=== PATIENT | female | born 2000 | race Caucasian/White ===

== ENCOUNTER 2023-03-14 22:08 | Inpatient (IN) | payer SELFPAY, OTHER ==
[2023-03-14 22:27] VITALS: BMI 25.0
[2023-03-14 22:37] VITALS: BP 127/83; PULSE 87; TEMP 36.9; O2SAT 98
[2023-03-14 22:51] LABS: Absolute Lymphocyte Count 2.43 X10^3/uL (0.83-4.51); Absolute Neutrophil Count 8.1 X10^3/uL (2.0-7.7); Basophil# 0.05 X10^3/uL; Basophil% 0.4 % (0-1); Eosinophil# 0.06 X10^3/uL; Eosinophils% 0.5 % (0-5); Hematocrit 34.8 % (37-47); Hemoglobin 11.6 g/dL (12.0-15.0); Lymphocyte # 2.43 X10^3/ul (0.83-4.51); Lymphocyte % 20.6 % (19-41); Mean Corp Hgb Conc 33.3 g/dL (32-36); Mean Corpuscular Hgb 29.8 pg (27.0-32.0); Mean Corpuscular Volume 89.5 fL (81-99); Mean Platelet Vol. 9.9 fl (6.2-12.0); Monocyte# 1.02 X10^3/uL; Monocyte% 8.7 % (0-10); NRBC Flagged by Analyzer 0 % (0-5); Neutrophil # 8.13 X10^3/uL (2.7-7.7); Neutrophil % 69.1 % (47-70); Platelet Count 229 K/mm3 (150-450); RBC Distribution Width CV 13.4 % (11.6-14.6); RBC Distribution Width SD 43.5 fl (35.1-43.9); Red Blood Count 3.89 M/mm3 (4.2-5.4); White Blood Count 11.8 K/mm3 (4.4-11.0)
--- NOTE | 2023-03-14 23:03 | HP.PCM.OB_ITS ---
HPI - General General Date of Admission: 03/14/23 Date of Service: 03/14/23 HPI Narrative JOYCE KHAN, is a 22 F who presents IAL at 36.3 weeks. She was a transfer of care from [facility]. Maternal Data Information Final STEFANIE: 04/09/23 Final STEFANIE Source: LMP Gestational age: 36 weeks 3 days PFSH PFSH Medical History no medical history Allergy/AdvReac Type Severity Reaction Status Date / Time No Known Allergies Allergy Verified 03/14/23 23:31 Family History no significant family his no significant family history Surgical History no surgical history no surgical history Social History Smoking Status: Never smoker History 2 Elective abortions Hx Para 1 Spontaneous abortions Hx # Term Pregnancies Ectopic pregnancies Hx # Pregnancies 1 Multiple births # of living children 1 NST FHR Rate Baby A Baseline: 130 Variability:: Moderate Accelerations:: 15 x 15 Decelerations:: None NST Reactive:: Yes FHR Category:: Category I Uterine Activity:: 4-7 minutes ROS Constitutional Constitutional: Denies change in weight, fatigue, fever(s), headache(s), poor appetite or weakness Eyes Eyes: Denies blurry vision, change in vision, floaters, seeing flashes or spots in vision ENT HEENT: Denies dizziness, headache(s), loss taste/smell or sore throat Cardiovascular Cardiovascular: Denies chest pain, dizziness, dyspnea, irregular heart rhythm, lightheadedness, palpitations or rapid heart rate Respiratory/Chest Respiratory/Chest: Denies change in mental status, chest tightness, cough, dyspnea or breast pain Gastrointestinal Gastrointestinal: Denies anorexia, chewing difficulty, constipation, diarrhea or weight changes Genitourinary Genitourinary: Denies difficulty urinating, dysuria, flank pain, genital pain, urinary frequency or urinary urgency Musculoskeletal Musculoskeletal: Denies back pain, difficulty walking, extremity pain, joint pain, muscle cramps or muscle weakness Integumentary Integumentary: Denies lesions or unusual bruising Neurologic Neurologic: Denies abnormal movements, abnormal speech, dizziness, numbness, seizure-like activity, syncope or weakness Psychiatric Psychiatric: Denies behavioral changes, change in appetite, confusion, depression, homicidal ideation, suicidal ideation or suicidal thoughts Endocrine Endocrinology: Denies excessive sweating, polydipsia or polyuria Hematologic/Lymphatic Hematologic/Lymphatic: Denies anemia Allergic/Immunologic Allergic/Immunologic: Denies itchy eyes, lip swelling, throat swelling, tongue swelling or wheezing Vital Signs Vital Signs Vital Signs: 03/14/23 22:37 03/14/23 22:37 03/14/23 22:37 Temperature Temperature Source Temporal Pulse Rate 87 Blood Pressure 127/83 H BP Systolic 127 BP Diastolic 83 Pulse Ox 03/14/23 22:37 03/14/23 22:37 Temperature 98.5 F Temperature Source Pulse Rate Blood Pressure BP Systolic BP Diastolic Pulse Ox 98 Weight Weight: 150 lb 3.2 oz Body Mass Index (BMI) 25.0 Physical Exam Const alert, oriented x3 and no apparent distress General Appearance: cooperative Orientation / Consciousness: awake HEENT normocephalic Neck full ROM Resp normal respiratory effort and normal air movement Effort and Inspection: able to speak in complete sentences and symmetric chest movement GI soft to palpation and non-tender Inspection: gravid Palpation: soft; Negative for tender external exam normal Manual OB Exam: estimated gestational size appropriate, presentation cephalic, dilated 7, effaced 90 and station 0 Back/Spine normal to inspection Extremity normal to inspection and full ROM Skin no rashes or lesions noted Psych mental status grossly normal Appearance: grossly normal Speech: normal speech Labs Labs Labs: Blood Type Pending Antibody Screen Pending Hct 34.8 % (37-47) L Hgb 11.6 g/dL (12.0-15.0) L Syphilis Total Ab Pending HIV 1&2 Antibody Pending Assessment & Plan (1) Active labor: COMMENT: transfer from [facility]. Charges/Coding Multi Select Codes Urinary/Genital Urinary/Genital CPT Codes: No Charge
[2023-03-14 23:37] VITALS: BP 132/76; PULSE 103; PULSE 77; TEMP 37.4; O2SAT 98
[2023-03-14 23:52] LABS: HIV - WCH Non-Reactive (Nonreactive); Hepatitis C Antibody Non-Reactive (Nonreactive); Syphilis Antibodies Non-reactive
[2023-03-15] VITALS (19 sets, daily range): BP systolic 98–134; BP diastolic 58–88; PULSE 67–112; RESP 14–16; TEMP 36.4–37.3; O2SAT 96–99
[2023-03-15 00:10] LABS: Group B Strep DNA By PCR Negative (Negative); Internal Control PASS; Probe Check PASS; Specimen Processing Control PASS
[2023-03-15] MEDS: Oxytocin 15 Units/NS 250ml 15 UNITS/250 ML IV.SOLN 334 UNITS IV (01:14)
[2023-03-15] MEDS: fentaNYL 100 MCG/2 ML Ampul IV (01:35)
--- NOTE | 2023-03-15 01:51 | EX.PCM.OBRPT ---
Assessment & Plan (1) Active labor: COMMENT: KW 36.3 IAL-transfer from [facility]. Maternal Data Information Final STEFANIE: 04/09/23 Final STEFANIE Source: LMP Gestational age: 36.3 Vaginal Delivery Maternal Presentation Maternal Presentation: Active Labor Maternal Presentation: Patient began pushing and delivered the head in the NIDA presentation. The head was delivered atraumatically and a tight nuchal cord ?1 was identified and was somersaulted through. The anterior and posterior shoulders delivered without complication followed by the rest of the and the was placed on the maternal abdomen. Delayed cord clamping was employed for approximately 60 seconds. Cord was clamped and cut and gentle traction was applied to the cord and the placenta delivered spontaneously immediately following it was noted to be intact with three-vessel cord. The perineum and vagina were inspected and noted to have a second degree lacerationwhich was repaired in the usual fashion using 3-0 Rapide. EBL was 200 EBL. Patient and tolerated delivery well. Apgars 9/9. Operative Information Date of Procedure: 03/15/23 Pre-Operative Diagnosis: See AP comments Post-Operative Diagnosis: Same Surgery / Procedure Performed: Spontaneous Vaginal Delivery furniture duster #1: Peggy Membreno Type of Anesthesia: Local with 1% Lidocaine Estimated Blood Loss: 200 Time of Delivery: 01:09 Findings Presentation: Vertex Amniotic Membrane Rupture Type: Artificial Time of Membrane Rupture: 0030 Amniotic Fluid Description: Clear Placental Delivery Description: Spontaneous Placenta Disposition: [facility] Cord Vessel Description: 3 Vessels Cord Entanglement: Around neck x 1, tight Nuchal Cord Compression: With compression A Gender: Male (1 minute): 9 (5 minute): 9 Delayed Cord Clamping: Yes Post Vaginal Delivery Medications Given After Delivery: IV Pitocin Episiotomy Description: None Laceration: 2nd degree Complication Complications: None Procedures Urinary/Genital [id number]: [id number] Vaginal Delivery Only
--- NOTE | 2023-03-15 02:02 | DCINST_ITS ---
Discharge Instructions Diet Discharge Diet: No restrictions Activity Discharge Activity: Return to Normal Activity May resume sexual activity in: 6-8 weeks Dressing / Incision Call your doctor if you observe: Fever of 101 or Higher, Coldness, Increased Pain, Numbness or Tingling, Change in Color, Inability to urinate, Inability to have a bowel movement, Using more than 1 pad per hour, Shortness of breath, Dizziness, Fainting spells, Swelling in the ankles, Chest pain, Increased palpitations (irregular heartbeat), Calf discomfort and Uncontrolled pain Follow Up Care Please Follow Up With: Peggy Membreno CNM When: Please call the office to schedule your follow up appointment in 6 weeks. If you had high blood pressure please call to schedule an appointment in 2 weeks. Test Results: Test results from this visit will be discussed in further detail at your follow- up appointment, if applicable. Discharge Plan Admission Admit Date/Time: 03/14/23 22:08 Attending Provider: Peggy Membreno Primary Care Provider: Denys Harmon Discharge Orders/Prescriptions Referrals / Follow Up: Denys Harmon DO [Primary Care Provider] -
[2023-03-15] MEDS: Ibuprofen 600 MG Tablet PO ×3 (02:25→20:21)
[2023-03-15] MEDS: 0.9% Saline Lock 10 ML Syringe IV (03:45)
--- NOTE | 2023-03-15 07:20 | NURSING ---
report given to Thu Beck RN who is assuming care of pt at this time
[2023-03-15] MEDS: Senna/Docusate Sodium 1 Tablet PO (20:28)
[2023-03-16 00:29] VITALS: BP 113/78; PULSE 73; RESP 18; TEMP 36.4
[2023-03-16 07:47] VITALS: BP 100/63; PULSE 74; RESP 16; TEMP 36.2; O2SAT 97
--- NOTE | 2023-03-16 07:57 | PCM.PN.OB ---
Subjective Subjective Patient doing well without complaints. Tolerating PO. Ambulating and voiding without difficulty. Feeding well. Denies chest pain, shortness of breath, calf pain/swelling, fevers, chills, lightheadedness. Objective Data Objective Data Vital Signs: Vital Signs Temp Pulse Resp BP Pulse Ox O2 Del Method 97.2 F L 74 16 100/63 97 Room Air 03/16/23 07:47 03/16/23 07:47 03/16/23 07:47 03/16/23 07:47 03/16/23 07:47 03/16/23 07:47 Oxygen Delivery Method Room Air Weight: 150 lb 3.2 oz Body Mass Index (BMI) 25.0 Intake & Output: Intake and Output for Last 24 Hours 03/14/23 03/15/23 03/16/23 23:59 23:59 23:59 Intake Total 250.00 / 250.00 Output Total 800 / 800 Balance -550.00 / -550.00 Lab / Micro Data Result Diagrams: 03/14/23 22:40 Micro: Microbiology 03/15/23 Unknown Genital vaginal Group B Streptococcus Culture - Preliminary Physical Exam Const alert and oriented x3 HEENT normocephalic Eyes PERRL Neck full ROM Resp normal respiratory effort GI soft to palpation GI Narrative: FF below U Assessment & Plan (1) Spontaneous vaginal delivery: PLAN: Plan s/p PPD # 1 1. routine post delivery care 2. breast feeding- support given 3. rh positive 4. rubella immune 5. home today
[2023-03-16 14:28] VITALS: BP 109/68; PULSE 92; RESP 15; TEMP 36.6; O2SAT 97
== END 2023-03-16 15:40 | disposition home or self-care (01) | DRG 807 ==
PROVIDERS: Admitting Provider Advanced Practice Midwife; PCP Family Medicine; Visit Provider Advanced Practice Midwife
DX: O60.14X0 Preterm labor third trimester with preterm delivery third trimester, not applicable or unspecified (principal); Z37.0 Single live birth; O69.2XX0 Labor and delivery complicated by other cord entanglement, with compression, not applicable or unspecified; O70.1 Second degree perineal laceration during delivery; Z3A.36 36 weeks gestation of pregnancy
CPT/HCPCS: 59025; 59050; 85025; 86703; 86780; 86803; 86850; 86900; 86901; 87081; 87653; 99221; A4216; G0378